=== PATIENT | female | born 1985 | race Caucasian/White ===

== ENCOUNTER 2023-09-04 08:49 | Outpatient (CLI) | payer BC, SELFPAY | END 2023-09-04 08:50 | disposition home or self-care (01) | PROVIDERS: Visit Provider Obstetrics & Gynecology | DX: Z01.419 Encounter for gynecological examination (general) (routine) without abnormal findings (principal); R68.82 Decreased libido; Z13.1 Encounter for screening for diabetes mellitus; Z83.49 Family history of other endocrine, nutritional and metabolic diseases; Z13.6 Encounter for screening for cardiovascular disorders | CPT/HCPCS: 80061; 82947; 84270; 84402; 84403; 84443 ==

== ENCOUNTER 2025-02-24 08:02 | Outpatient (CLI) | payer BC, SELFPAY ==
--- NOTE | 2025-02-24 08:15 | CRLHL7_ITS ---
For Patients: As a result of the Century Cures Act, medical imaging exams and procedure reports are released immediately into your electronic medical record. You may view this report before your referring provider. If you have questions, please contact your health care provider. INDICATION: BILATERAL SCREENING MAMMOGRAM, ASYMPTOMATIC 39 Y/O FEMALE COMPARISON: BASELINE TECHNIQUE: Digital mammogram in CC and MLO projections including computer-aided detection (CAD) and tomosynthesis. BREAST COMPOSITION: The breasts are extremely dense, which lowers the sensitivity of mammography. FINDINGS: No suspicious findings. ASSESSMENT: BI-RADS 1 Negative RECOMMENDATION: Annual screening mammogram. A lay language report of this examination will be provided to the patient. Dictated by: Phani Savage MD @ 02/24/2025 10:19:18 (Electronically Signed)
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
== END 2025-02-24 08:03 | disposition home or self-care (01) ==
LOC: MAMMO 08:03
PROVIDERS: Visit Provider Obstetrics & Gynecology
DX: Z12.31 Encounter for screening mammogram for malignant neoplasm of breast (principal); R92.343 Mammographic extreme density, bilateral breasts
CPT/HCPCS: 77063; 77067